=== PATIENT | female | born 1990 | race Hispanic/Latino ===

== ENCOUNTER 2018-09-09 13:09 | Emergency (ER) | payer OTHER, SELFPAY ==
[2018-09-09] MEDS ORDERED: Morphine 4 MG/ML VIAL ONE (13:53)
[2018-09-09] MEDS ORDERED: Ondansetron PF 4 MG/2 ML Vial ONE (13:53)
[2018-09-09 14:00] LABS: BHCG - Serum Negative (NEGATIVE); Pregs Control Background? CLEAR/WHITE (CLR/WHITE); Pregs Control Bar Appear? YES (CONTROL BAR)
[2018-09-09 14:02] LABS: #Basophils 0.1 thou/uL (0.0-0.2); #Lymphocytes 1.1 thou/uL (1.20-3.40); #Monocytes 0.6 thou/uL (0.11-0.59); #Neutrophils 10.6 thou/uL (1.40-6.50); %Basophils 0.7 % (0.0-1.0); %Eosinophils 0.4 % (0.0-10.0); %Lymphocytes 8.5 % (21.0-51.0); %Monocytes 4.5 % (0.0-10.0); %Neutrophils 85.8 % (42.0-75.0); Hemoglobin 16.9 g/dL (12.0-16.0); Mean Corpuscular HGB CONC 33.7 g/dL (32.0-36.0); Mean Corpuscular Hemoglobin 30.2 pg (27.0-31.0); Mean Corpuscular Volume 89.6 fL (78.0-98.0); Mean Platelet Volume 8.8 fL (7.4-10.4); Platelet Count 173 thou/uL (130-400); RBC Distribution Width 11.3 % (11.5-14.5); Red Blood Cell (RBC) Count 5.59 mill/uL (4.20-5.40); White Blood Cell (WBC) Count 12.3 thou/uL (4.8-10.8)
[2018-09-09 14:12] LABS: ALT (SGPT) 18 U/L (8-55); AST (SGOT) 16 U/L (5-34); Albumin 4.6 g/dL (3.5-5.0); Alkaline Phosphatase 52 U/L (40-150); Anion Gap 13 mmol/L (10-20); BUN (Urea Nitrogen) 13 mg/dL (7.0-18.7); Bilirubin, Total 0.7 mg/dL (0.2-1.2); Calc. Creatinine Clearance 0 mL/min (70-130); Calcium 9.2 mg/dL (7.8-10.44); Carbon Dioxide 23 mmol/L (22-29); Chloride 104 mmol/L (98-107); Estimated GFR-MDRD 74; Glucose 112 mg/dL (70-105); Lipase 21 U/L (8-78); Protein, Total 7.6 g/dL (6.0-8.3); Sodium 136 mmol/L (136-145)
[2018-09-09 15:30] LABS: Bilirubin Negative (Negative); Blood, Urine Large (Negative); Clarity CLEAR (Clear); Glucose, Urine (Dipstick) Negative (Negative); Leukocyte Negative (Negative); Nitrite Negative (Negative); Protein, Urine (Dipstick) Negative (Neg-Trace); Specific Gravity, Urine 1.007 (1.002-1.036); Urobilinogen 0.2 mg/dL (0.2-1.0); pH, Urine 5.5 (5.0-9.0)
[2018-09-09 15:32] LABS: Pregnancy Test - Urine (BHCG) Negative (Negative); Pregu Control Background? CLEAR/WHITE (CLR/WHITE); Pregu Control Bar Appear? YES (CONTROL BAR); Specific Gravity 1.007 (1.002-1.036)
[2018-09-09 15:35] LABS: Bacteria/HPF None Seen HPF (None Seen); Hyaline Casts/LPF 0-3 HYALINE CAST LPF (0-3 Hyaline); Pathc Cast-AUWi Flag 0.14 (0-2.49); Squamous Epithelial None Seen HPF (0-3); WBC/HPF None Seen HPF (0-3)
--- NOTE | 2018-09-09 15:52 | CT ---
NONCONTRAST CT ABDOMEN AND PELVIS: DATE: 09/09/2018. HISTORY: Sudden onset of right flank pain. TECHNIQUE: Contiguous axial CT images are obtained through the abdomen and pelvis without the administration of intravenous contrast. Coronal reformatted images are provided. COMPARISON: None available. FINDINGS: There is mild right hydronephrosis and hydroureter with minimal stranding adjacent to the proximal ri ght ureter. There is an approximately 3 mm calculus seen in the region of the right UVJ. No additio nal renal or ureteral calculi are seen bilaterally. Lack of intravenous contrast limits sensitivity for evaluation of the parenchymal organs. However, t he lung bases, liver, spleen, pancreas, bilateral adrenal glands, and left kidney demonstrate a gross ly normal nonenhanced CT appearance. The urinary bladder is decompressed. Uterus and adnexal structures have a grossly normal nonenhanced CT appearance. The appendix is visualized and normal in caliber. IMPRESSION: Partially obstructing right ureterovesical junction calculus measuring 3 mm. POS: YOAN
== END 2018-09-09 16:54 | disposition home or self-care (01) ==
LOC: ERS 13:09
DX: N13.2 Hydronephrosis with renal and ureteral calculous obstruction (principal)
CPT/HCPCS: 74176; 80053; 81003; 81015; 81025; 83690; 83880; 84484; 84703; 85025; 87086; 96361; 96374; 96375; J2270; J2405

== ENCOUNTER 2019-03-04 10:17 | Emergency (ER) | payer BC, SELFPAY ==
[2019-03-04] MEDS ORDERED: Cyclobenzaprine 10 MG TAB ONE (12:43)
[2019-03-04] MEDS ORDERED: Ketorolac Tromethamine 30 MG/ML VIAL ONE (12:43)
[2019-03-04 13:09] LABS: Bilirubin Negative (Negative); Blood, Urine Negative (Negative); Clarity CLEAR (Clear); Glucose, Urine (Dipstick) Negative (Negative); Leukocyte Negative (Negative); Nitrite Negative (Negative); Protein, Urine (Dipstick) Negative (Neg-Trace); Urobilinogen 0.2 mg/dL (0.2-1.0); pH, Urine 5.5 (5.0-9.0)
[2019-03-04] MEDS ORDERED: Dexamethasone 10 MG/ML VIAL ONE (13:35)
== END 2019-03-04 13:50 | disposition home or self-care (01) ==
LOC: ERS 10:17
DX: M54.41 Lumbago with sciatica, right side (principal)
CPT/HCPCS: 81003; 96372; J1100; J1885

== ENCOUNTER 2020-07-18 11:23 | Outpatient (CLI) | payer BC ==
[2020-07-19 13:42] LABS: SARS-CoV-2 MS2 Positive; SARS-CoV-2 N Gene Negative; SARS-CoV-2 S Gene Negative; SARS-CoV-2 by NAA Not Detected (NotDetected); SARS-CoV-2 orf1ab Negative
== END 2020-07-18 11:24 | disposition home or self-care (01) ==
LOC: LABBT 11:23
PROVIDERS: ATTEND Obstetrics & Gynecology
DX: Z20.828 Contact with and (suspected) exposure to other viral communicable diseases (principal)
CPT/HCPCS: 87635; U0003

== ENCOUNTER 2020-07-21 05:30 | Inpatient (IN) | payer BC, SELFPAY ==
--- NOTE | 2020-07-20 23:57 | PDOC.LDHP ---
Labor and Delivery H&P Chief complaint: scheduled induction HPI: 32 G4 P 1021 at 39 and 4/7 weeks presents for term induction of labor. Current gestational age (weeks): 39 Due date: 07/25/20 Grav: 4 Para: 1 Current complications: none Abnormal US findings: No Current medications: pre- vitamins Social history: none - Physical Exam Vital signs reviewed and normal: yes General: NAD, resting Heart: RRR Lungs: CTAB Abdomen: gravid Extremeties: no edema FHT: category 1 - Assessment L&D Assessment: elective induction at term - Plan Plan: admit to L&D, cervical ripening
[~2020-07-21 05:30] MED LIST: Acetaminophen 500 MG TAB PO PRN; Butorphanol Tartrate 1 MG/ML VIAL SLOW IVP PRN; Carboprost 250 MCG/ML AMP IM PRN; Diphenoxylate HCl/Atropine Tablet PO PRN; Docusate 100 MG CAP PO PRN; HYDROcodone/Acetaminophen 5/325 mg Tablet PO PRN; Ibuprofen 800 MG TAB PO PRN; Lidocaine 1% (PF) 30 ML VIAL SC PRN; Methylergonovine 0.2 MG/ML VIAL IM PRN; Misoprostol 200 MCG TAB PR PRN; NS / Oxytocin 40 units/1000ml 1,000 ML IV PRN; NS w/ Oxytocin 10 units 500 ML IV SCH; Ondansetron PF 4 MG/2 ML Vial IVP PRN; Promethazine HCl 25 MG/ML VIAL IM PRN; Zolpidem Tartrate 5 MG TAB PO PRN; hydrALAZINE 20 MG/ML VIAL SLOW IVP PRN
[2020-07-21 06:01] VITALS: BMI 37.2
[2020-07-21] MEDS: Lactated Ringer's 1,000 ML IV SCH ×3 (06:05→17:55)
[2020-07-21 06:14] LABS: Hemoglobin 14.2 g/dL (12.0-16.0); Mean Corpuscular HGB CONC 35.2 g/dL (32.0-36.0); Mean Corpuscular Hemoglobin 30.7 pg (27.0-31.0); Mean Corpuscular Volume 87.3 fL (78.0-98.0); Mean Platelet Volume 9.6 fL (7.4-10.4); Platelet Count 128 thou/uL (130-400); Red Blood Cell (RBC) Count 4.62 mill/uL (4.20-5.40); White Blood Cell (WBC) Count 8.8 thou/uL (4.8-10.8)
[2020-07-21 06:55] LABS: Syphilis Antibody Nonreactive (Nonreactive); Syphilis Antibody Index 0.04 S/CO (<1.00 Non-Reactive)
[2020-07-21 06:59] LABS: HBSAg Index 0.17 S/CO (0-0.99); Hep B Surf Ag Non-Reactive S/CO (NonReactive)
[2020-07-21] MEDS ORDERED: Fentanyl 4 mcg/Bup 0.1% Cadd 100 ML ONE (14:17)
[2020-07-21] MEDS ORDERED: Lidocaine 1% (PF) 30 ML VIAL ONE (14:21)
[2020-07-21] MEDS ORDERED: NS / Oxytocin 40 units/1000ml 1,000 ML ONE (14:21)
[2020-07-21] MEDS ORDERED: Preparation H Ointment 28 GM TUBE PR PRN (17:21)
[2020-07-21] MEDS ORDERED: Adacel (T-DAP) 0.5 ML SYRINGE IM ONE (17:21)
[2020-07-21] MEDS ORDERED: Methylergonovine 0.2 MG/ML VIAL IM PRN (17:21)
[2020-07-21] MEDS ORDERED: Ondansetron PF 4 MG/2 ML Vial IVP PRN (17:21)
[2020-07-21] MEDS ORDERED: hydrALAZINE 20 MG/ML VIAL SLOW IVP PRN (17:21)
[2020-07-21] MEDS ORDERED: Promethazine HCl 25 MG/ML VIAL IM PRN (17:21)
[2020-07-21] MEDS ORDERED: Misoprostol 200 MCG TAB VAG PRN (17:21)
[2020-07-21] MEDS ORDERED: Zolpidem Tartrate 5 MG TAB PO PRN (17:21)
[2020-07-21] MEDS ORDERED: Milk Of Magnesia 30 ML UDCUP PO PRN (17:21)
[2020-07-21] MEDS ORDERED: HYDROcodone/Acetaminophen 5/325 mg Tablet PO PRN ×2 (17:21)
[2020-07-21] MEDS ORDERED: NS / Oxytocin 40 units/1000ml 1,000 ML IV SCH (17:21)
[2020-07-21] MEDS ORDERED: Varicella virus, LIVE 0.5 ML VIAL SC ONE (17:21)
[2020-07-21] MEDS ORDERED: diphenhydrAMINE 25 MG CAP PO PRN (17:21)
[2020-07-21] MEDS ORDERED: Measles/Mumps/Rubella 10 MCG/0.5 ML VIAL SC ONE (17:21)
[2020-07-21] MEDS ORDERED: Bisacodyl 10 MG SUPP PR PRN (17:21)
[2020-07-21] MEDS ORDERED: Benzocaine-Menthol 82.5 ML CAN TOP PRN (17:21)
[2020-07-21] MEDS ORDERED: Lanolin Ointment 7 GM TUBE TOP PRN (17:21)
[2020-07-21] MEDS: Ferrous Sulfate 325 MG TAB PO SCH (17:53)
[2020-07-22] MEDS: Ibuprofen 800 MG TAB PO SCH ×4 (00:37→16:24)
[2020-07-22] MEDS: Docusate Calcium (SURFAK) 240 MG CAP PO SCH ×2 (00:39→08:08)
[2020-07-22] MEDS: Ferrous Sulfate 325 MG TAB PO SCH ×2 (08:02→16:23)
[2020-07-22] MEDS ORDERED: Prenatal Vitamin 1 TAB PO SCH (09:00)
[2020-07-22 12:06] VITALS: BP 127/64; TEMP 98.4
--- NOTE | 2020-07-22 19:35 | PDOC.PP ---
Post Progress Note Post Day #: 1 PO intake tolerated: yes Flatus: yes Ambulation: yes Vital Signs (12 hours) Temp Pulse Resp BP Pulse Ox 07/22/20 12:05 98.4 F 72 20 127/64 07/22/20 08:18 98.5 F 86 20 122/61 97 07/22/20 08:03 97 Weight Weight 217 lb - Physical Examination General: NAD Cardiovascular: no m/r/g, RRR Respiratory: clear to auscultation bilaterally Abdominal: + bowel sounds, lochia, no distention Extremities: negative homans (B) Neurological: no gross focal deficits (DC to home) Psychiatric: A&Ox3, normal affect Result Diagrams: 07/21/20 06:06 Additional Labs: Post Labs Hep Bs Antigen Non-Reactive S/CO (NonReactive) 07/21/20 06:06 Blood Type A POSITIVE 07/21/20 06:48
--- NOTE | 2020-07-23 03:00 | DN ---
DATE OF PROCEDURE: 07/21/2020 TIME OF SERVICE: 1440 hours Central Standard Time. PREOPERATIVE DIAGNOSIS: Intrauterine at 39 weeks and 3 days with a term induction of labor. POSTOPERATIVE DIAGNOSIS: Intrauterine at 39 weeks and 3 days with a term induction of labor. PROCEDURE: Spontaneous vaginal delivery over intact perineum. FINDINGS: Viable male infant, weighing 3331 g or 7 pounds 5 ounces, Apgars 8 and 9. QUANTITATIVE BLOOD LOSS: 100 mL. COMPLICATIONS: None. PROCEDURE IN DETAIL: The patient presented to [facility] where she was admitted to the labor and delivery service. The patient underwent a normal and uneventful labor with normal cervical dilatation until she was found to be completely dilated. She was then allowed to push and was able to bring the baby down and delivered the baby in a vertex presentation without difficulties. Once the head delivered in occiput anterior position, the shoulders followed spontaneously along with the rest of the baby's body. Once out the baby's mouth and nose were bulb suctioned. The cord was clamped and cut and baby was handed to waiting attendants. Cord blood was collected. Gentle fundal massage was performed and the placenta delivered intact without problems. Hemostasis was assured. Quantitative blood loss was calculated. Inspection of the cervix, vaginal vault, and perineum did not reveal any lacerations needing suturing. Once again, hemostasis was within normal limits and the patient was allowed to recover in the labor and delivery room. Baby went to nursery. Job ID: [id number]
== END 2020-07-22 20:05 | disposition home or self-care (01) | DRG 807 ==
LOC: L&D 05:33 → 3SW 17:18
PROVIDERS: ADMIT Obstetrics & Gynecology; ATTEND Obstetrics & Gynecology
PROC: 10E0XZZ Delivery of Products of Conception, External Approach (ICD-10-PCS; principal; 2020-07-21)
PROC: 10907ZC Drainage of Amniotic Fluid, Therapeutic from Products of Conception, Via Natural or Artificial Opening (ICD-10-PCS; 2020-07-21)
PROC: 3E033VJ Introduction of Other Hormone into Peripheral Vein, Percutaneous Approach (ICD-10-PCS; 2020-07-21)
DX: O80 Encounter for full-term uncomplicated delivery (principal); Z37.0 Single live birth; Z3A.39 39 weeks gestation of pregnancy; Z88.0 Allergy status to penicillin
CPT/HCPCS: 36415; 85027; 86780; 86850; 86900; 86901; 87340; 87635; U0003

== ENCOUNTER 2025-09-03 09:40 | Outpatient (CLI) | payer BC | END 2025-09-03 09:41 | disposition home or self-care (01) | LOC: MRI 09:40 | PROVIDERS: ATTEND Surgery | DX: M89.8X1 Other specified disorders of bone, shoulder (principal) ==